=== PATIENT | female | born 1965 | race Caucasian/White ===

== ENCOUNTER 2023-07-29 06:19 | Day surgery (SDC) | payer OTHER, SELFPAY ==
[2023-07-29 10:51] VITALS: BMI 31.2
[2023-07-29 10:53] VITALS: BMI 31.2
[2023-07-29 10:55] VITALS: BP 143/84
[2023-07-29 12:27] VITALS: BP 123/72
[2023-07-29 12:30] VITALS: BP 125/73
[2023-07-29 12:42] VITALS: BP 121/69
== END 2023-07-29 12:56 | disposition short-term general hospital (02) ==
LOC: GI 06:19
PROVIDERS: ATTENDING PHYSICIAN Internal Medicine Gastroenterology
DX: Z12.11 Encounter for screening for malignant neoplasm of colon (principal); K63.5 Polyp of colon; K64.0 First degree hemorrhoids; K57.30 Diverticulosis of large intestine without perforation or abscess without bleeding; Z86.010 Personal history of colon polyps; Z98.890 Other specified postprocedural states
CPT/HCPCS: 45380; 88305

== ENCOUNTER → 2024-04-06 11:11 | Outpatient (REF) | payer OTHER, SELFPAY | LOC: HWWDC 11:11 | PROVIDERS: ATTENDING PHYSICIAN Physician Assistant Medical | DX: M54.59 Other low back pain (principal); Z12.31 Encounter for screening mammogram for malignant neoplasm of breast | CPT/HCPCS: 72110; 77063; 77067 ==

== ENCOUNTER 2024-08-02 06:21 | Day surgery (SDC) | payer OTHER, SELFPAY | END 2024-08-02 09:29 | disposition home or self-care (01) | LOC: GI 06:21 | PROVIDERS: ATTENDING PHYSICIAN Internal Medicine Gastroenterology | DX: Z12.11 Encounter for screening for malignant neoplasm of colon (principal); K63.5 Polyp of colon; K57.30 Diverticulosis of large intestine without perforation or abscess without bleeding; K64.0 First degree hemorrhoids; Z86.0100 Personal history of colon polyps, unspecified; Z98.890 Other specified postprocedural states | CPT/HCPCS: 45380; 88305 ==